=== PATIENT | male | born 1925 | race Caucasian/White ===

== ENCOUNTER 2017-01-30 11:20 | Day surgery (SDC) | payer BC ==
[2017-01-30 12:31] VITALS: BMI 28.1
[2017-01-30] MEDS ORDERED: ePHEDrine SULFATE 50 MG/1 ML AMPULE ONE (13:19)
[2017-01-30 13:55] VITALS: TEMP 97.5
[2017-01-30 14:13] VITALS: PULSE 50
[2017-01-30 15:05] VITALS: BP 118/80
--- NOTE | 2017-02-03 12:32 | PATH ---
Surgical Pathology Report Patient Name: PIA SON [facility]. Rec. #: [id number] /Age/Gender: 1925 (Age: 89) / M Account: [id number] Location: [facility]-ENDOSCOPY Taken: 01/30/2017 Received: 02/02/2017 Reported: 02/03/2017 Physicians: Lonny Farris M.D. Specimen(s) Received A: SIGMOID COLON POLYP B: TRANSVERSE COLON POLYPS C: BX MID TRANSVERSE COLON ULCERATED LESION D: RECTAL POLYPS Clinical History Abnormal CT scan, abdominal pain Ischemic colitis, right colon polyps Final Diagnosis A. COLON, SIGMOID, BIOPSY: HYPERPLASTIC POLYP. B. COLON, TRANSVERSE, BIOPSY: TUBULAR ADENOMA AND HYPERPLASTIC POLYP. C. COLON, MID TRANSVERSE, BIOPSY: COLONIC MUCOSA WITH ULCERATION WITH ASSOCIATED FEATURES SUGGESTIVE OF ISCHEMIC COLITIS. ADJACENT MUCOSA SHOWS MARKED REACTIVE CHANGES. NO CARCINOMA IDENTIFIED. D. COLON, RECTUM, BIOPSY: HYPERPLASTIC POLYPS. Electronically Signed Michael John M.D. Gross Description A. Received in formalin, labeled "sigmoid colon" are 2 pérez, irregular portions of soft tissue measuring 0.3 and 0.5 cm. in greatest dimension. The specimens are submitted in toto in one cassette. B. Received in formalin, labeled "transverse colon polyps" are 7 pérez, irregular portions of soft tissue ranging from 0.1-0.2 cm. in greatest dimension. The specimens are submitted in toto in one cassette. C. Received in formalin, labeled "biopsy mid transverse colon ulcerated lesion" are 8 pérez, irregular portions of soft tissue ranging from 0.1-0.4 cm. in greatest dimension. The specimens are submitted in toto in one cassette. D. Received in formalin, labeled "rectal polyps" are 4 pérez, irregular portions of soft tissue ranging from 0.1-0.5 cm. in greatest dimension. The specimens are submitted in toto in one cassette. 02/02/201702/02/2017
== END 2017-01-30 15:04 | disposition home or self-care (01) ==
LOC: JASU-ENDO 11:20
PROVIDERS: ATTEND Internal Medicine Gastroenterology
PROC: 0DBL8ZX Excision of Transverse Colon, Via Natural or Artificial Opening Endoscopic, Diagnostic (ICD-10-PCS; 2017-01-30)
PROC: 0DBK8ZX Excision of Ascending Colon, Via Natural or Artificial Opening Endoscopic, Diagnostic (ICD-10-PCS; 2017-01-30)
PROC: 0DBP8ZX Excision of Rectum, Via Natural or Artificial Opening Endoscopic, Diagnostic (ICD-10-PCS; 2017-01-30)
PROC: 3E0H8GC Introduction of Other Therapeutic Substance into Lower GI, Via Natural or Artificial Opening Endoscopic (ICD-10-PCS; 2017-01-30)
PROC: 0DBN8ZX Excision of Sigmoid Colon, Via Natural or Artificial Opening Endoscopic, Diagnostic (ICD-10-PCS; principal; 2017-01-30 11:00)
DX: K63.3 Ulcer of intestine (principal); R10.9 Unspecified abdominal pain; K62.1 Rectal polyp; D12.5 Benign neoplasm of sigmoid colon; D12.3 Benign neoplasm of transverse colon; K57.30 Diverticulosis of large intestine without perforation or abscess without bleeding; K64.8 Other hemorrhoids; Z86.010 Personal history of colon polyps; R19.4 Change in bowel habit
CPT/HCPCS: 88305-TC